=== PATIENT | female | born 1990 | race Caucasian/White ===

== ENCOUNTER 2016-05-14 09:01 | Outpatient (CLI) | payer MEDICAID ==
[~2016-05-14] VITALS: Ht 160 cm; Wt 62.1 kg
[2016-05-14 09:45] VITALS: BP 117/59
[2016-05-14] MEDS ORDERED: D5 LR IV SOLUTION 1,000 ML IV ONE ×2 (10:30→18:45)
[2016-05-14] MEDS ORDERED: ONDANSETRON 4 MG/2 ML (SDV) Z0FRAN IVP ONE (11:45)
[2016-05-14 12:21] LABS: BASOPHILS % (AUTO) 0 % (0-10); EOSINOPHILS % (AUTO) 0 % (0-10); LYMPHOCYTES # (AUTO) 0.7 X 10^3 (1.0-4.0); LYMPHOCYTES % (AUTO) 7 % (12-44); MEAN CORPUSCULAR HEMOGLOBIN 29 PG (25-34); MEAN CORPUSCULAR HGB CONC 34 G/DL (32-36); MEAN CORPUSCULAR VOLUME 87 FL (80-99); MEAN PLATELET VOLUME 11.4 FL (7.4-10.4); MONOCYTES # (AUTO) 0.4 X 10^3 (0.0-1.0); MONOCYTES % (AUTO) 4 % (0-12); NEUTROPHILS # (AUTO) 9.2 X 10^3 (1.8-7.8); NEUTROPHILS % (AUTO) 89 % (42-75); PLATELET COUNT 216 10^3/uL (130-400); RED BLOOD COUNT 3.67 10^6/uL (4.35-5.85); RED CELL DISTRIBUTION WIDTH 12.4 % (10.0-14.5); WHITE BLOOD COUNT 10.3 10^3/uL (4.3-11.0)
[2016-05-14 12:42] LABS: ALANINE AMINOTRANSFERASE 13 U/L (0-55); ALBUMIN 3.1 G/DL (3.2-4.5); ANION GAP 7 MMOL/L (5-14); ASPARTATE AMINO TRANSFERASE 13 U/L (5-34); BILIRUBIN,TOTAL 0.4 MG/DL (0.1-1.0); BLOOD UREA NITROGEN 9 MG/DL (7-18); BUN/CREATININE RATIO 16; CARBON DIOXIDE 23 MMOL/L (21-32); CHLORIDE 106 MMOL/L (98-107); CREATININE SERUM 0.58 MG/DL (0.60-1.30); GFR ESTIMATED > 60; GLUCOSE 157 MG/DL (70-105); POTASSIUM 3.3 MMOL/L (3.6-5.0); SODIUM 136 MMOL/L (135-145); TOTAL PROTEIN 5.9 G/DL (6.4-8.2)
[2016-05-14 12:51] LABS: BAND NEUTROPHILS 1 %; BASOPHILS % (MANUAL) 0 %; EOSINOPHILS % (MANUAL) 0 %; LYMPHOCYTES % (MANUAL) 7 %; NEUTROPHILS % (MANUAL) 88 %
[2016-05-14 13:14] LABS: BILIRUBIN,URINE NEGATIVE (NEGATIVE); KETONES,URINE 1+ (NEGATIVE); LEUKOCYTE ESTERASE ,URINE NEGATIVE (NEGATIVE); NITRITE,URINE NEGATIVE (NEGATIVE); PH,URINE 6 (5-9); PROTEIN,URINE 1+ (NEGATIVE); UROBILINOGEN,URINE NORMAL (NORMAL)
[2016-05-14] MEDS ORDERED: PNV91TAB3 PO (15:00)
[2016-05-14 15:15] VITALS: BP 107/68
[2016-05-14] MEDS ORDERED: D5 LR IV SOLUTION 1,000 ML IV SCH (18:30)
--- NOTE | 2016-05-17 14:16 | Physician Query-Final Dx ---
YFN DANIEL 05/17/16 1416: Clinic Account Progress/Dx Physician Query: Please give diagnosis Date of Service May 14, 2016 at 09:01 HARRISON MESA MD 05/18/16 0735: Clinic Account Progress/Dx DIAGNOSIS: Diagnosis hyperemesis gravidarum YFN DANIEL May 17, 2016 14:16 HARRISON MESA MD May 18, 2016 07:35
== END 2016-05-14 15:15 | disposition home or self-care (01) ==
LOC: WSo 09:01 → LDRP 09:01 → WSo 15:15
PROVIDERS: ATTEND Obstetrics & Gynecology
DX: O21.9 Vomiting of pregnancy, unspecified (principal); Z3A.23 23 weeks gestation of pregnancy
CPT/HCPCS: 36415; 80053; 81000; 85007; 85027; 87088; 96361; 96374; 99213

== ENCOUNTER 2016-08-26 15:20 | Inpatient (IN) | payer MEDICAID ==
[~2016-08-26] VITALS: Ht 160 cm; Wt 67.2 kg
[2016-08-26] VITALS (31 sets, daily range): BP systolic 98–148; BP diastolic 55–88
[~2016-08-26 15:20] MED LIST: PNV91TAB3 PO
[2016-08-26] MEDS ORDERED: D5 LR IV SOLUTION 1,000 ML IV SCH (15:32)
[2016-08-26] MEDS ORDERED: AMPICILLIN INJECTION 2,000 MG in NS (IVPB) 50 ML IV SCH (15:32)
[2016-08-26] MEDS ORDERED: LIDOCAINE/EPI 1%-1:200,000 (XYLOCAINE) 30 ML VIAL INJ PRN (15:45)
[2016-08-26] MEDS ORDERED: AMPICILLIN 2000 MG INJECTION (IM/IV) ONE (16:03)
[2016-08-26] MEDS ORDERED: NS (IVPB) 50 ML ONE ×2 (16:04→20:24)
[2016-08-26 17:08] LABS: BASOPHILS % (AUTO) 0 % (0-10); EOSINOPHILS # (AUTO) 0.3 10^3/uL (0.0-0.3); EOSINOPHILS % (AUTO) 2 % (0-10); LYMPHOCYTES # (AUTO) 2.8 X 10^3 (1.0-4.0); LYMPHOCYTES % (AUTO) 22 % (12-44); MEAN CORPUSCULAR HEMOGLOBIN 28 PG (25-34); MEAN CORPUSCULAR HGB CONC 33 G/DL (32-36); MEAN CORPUSCULAR VOLUME 84 FL (80-99); MEAN PLATELET VOLUME 13.4 FL (7.4-10.4); MONOCYTES # (AUTO) 0.8 X 10^3 (0.0-1.0); MONOCYTES % (AUTO) 7 % (0-12); NEUTROPHILS # (AUTO) 8.7 X 10^3 (1.8-7.8); NEUTROPHILS % (AUTO) 69 % (42-75); PLATELET COUNT 203 10^3/uL (130-400); RED BLOOD COUNT 4.09 10^6/uL (4.35-5.85); RED CELL DISTRIBUTION WIDTH 12.2 % (10.0-14.5); WHITE BLOOD COUNT 12.6 10^3/uL (4.3-11.0)
[2016-08-26] MEDS ORDERED: OXYTOCIN/NORMAL SALINE 500 ML IV SCH (18:10)
--- NOTE | 2016-08-26 18:10 | History & Physical ---
History and Physical Date Seen by Provider: Aug 26, 2016 Time Seen by Provider: 18:06 this patient is a 26-year-old G1 white female with an EDC of 6 2170 38-1/7 weeks ' gestation. She was seen in my office today with contractions pain and pressure. The baby 3 cm dilated left 2 to +3 station and 90 percent with intact membranes. Her history is significant for having a GBS culture at 35 weeks gestation. She was sent to labor and delivery for management. She denies rupture membranes or bleeding. She's had no other problems with this . Allergies are to penicillin and Ceclor both of which caused her to be somewhat hyperactive when she was a toddler , have discussed this with the patient and plan to use ampicillin for GBS prophylaxis as the drug of choice and her allergy does not sound as if it would be a specific concern Medications are vitamins Past medical history, surgical history, obstetric history, family history, social history is operative antepartum record HEENT exam is normal Neck supple with no thyromegaly and no lymphadenopathy Abdomen is gravid soft nontender nondistended Extremities show no clubbing or cyanosis. There is no Homans sign. Pelvic exam now shows cervix almost 5 cm dilated 90 percent effaced +2 to +3 station and intact membranes and vertex presentation. monitor shows contractions every 2-3 minutes heart rate pattern is normal and reassuring Laboratory Tests 08/26/16 16:20 White blood cell count is slightly elevated hemoglobin is normal Assessment and plan term at 38-1/7 weeks' gestation in active labor now dilated 5 cm. Patient's history is concerning for GBS positive culture and the presenting part at a very low station. We have started ampicillin for GBS prophylaxis and her managing expectantly. I suspect that she will deliver vaginally sometime this evening term at 30 8/7 weeks' gestation in active labor with GBS positive culture Allergies and Home Medications Allergies Coded Allergies: Penicillins (Verified Allergy, Severe, 05/14/16) amoxicillin (Verified Allergy, Severe, 05/14/16) cefaclor (Verified Allergy, Severe, 05/14/16) Home Medications Pnv95/Ferrous Fumarate/FA 1 Each Tablet, 1 EACH PO DAILY, (Reported) Clinical Quality Measures DVT/VTE Risk/Contraindication: Risk Factor Score Per Nursin RFS Level Per Nursing on Admit: 1=Low/No VTE PPX HARRISON MESA MD Aug 26, 2016 6:10 pm
[2016-08-26] MEDS ORDERED: BENZOCAINE/MENTHOL (DERMOPLAST) 56 ML CAN TP PRN (18:15)
[2016-08-26] MEDS ORDERED: TETANUS,DIPTH,PERTUSS P/F (BOOSTRIX) 0.5 ML VIAL IM ONE (18:15)
[2016-08-26] MEDS ORDERED: oxyCODONE/APAP 10/325MG (PERCOCET 10) TABLET PO PRN (18:15)
[2016-08-26] MEDS ORDERED: MEASLES,MUMPS,RUBELLA 1 EA INJ SC ONE (18:15)
[2016-08-26] MEDS ORDERED: LACTATED RINGERS 1,000 ML IV ONE ×2 (19:22→20:34)
[2016-08-26] MEDS ORDERED: SUFENTA 0.6MCG/ML BUPIVA 0.125 100 ML ONE (19:44)
[2016-08-26] MEDS ORDERED: AMPICILLIN INJECTION 1,000 MG in NS (IVPB) 50 ML IV SCH (19:45)
[2016-08-26] MEDS ORDERED: fentaNYL INJECTION 100 MCG/2 ML AMP ONE (19:55)
[2016-08-26] MEDS ORDERED: AMPICILLIN 1000 MG INJECTION (IV/IM) ONE (20:24)
[2016-08-26] MEDS ORDERED: LIDOCAINE/EPI 1%-1:200,000 (XYLOCAINE) 30 ML VIAL ONE (20:41)
[2016-08-26] MEDS ORDERED: METOCLOPRAMIDE INJ 10 MG/2 ML (REGLAN) IV PRN (20:45)
[2016-08-26] MEDS ORDERED: diphenhydrAMINE 50 MG/ML INJ (BENADRYL) IV PRN (20:45)
[2016-08-26] MEDS ORDERED: NALOXONE 0.4 MG/ML 1 ML (NARCAN) VIAL IV PRN ×2 (20:45)
[2016-08-26] MEDS ORDERED: ONDANSETRON 4 MG/2 ML (SDV) Z0FRAN IV PRN (20:45)
[2016-08-26] MEDS ORDERED: EPIDURAL (SUFENTA 0.6MCG/ML BUPIVA 0.125%) 100 ML BAG EPI PRN (20:45)
--- NOTE | 2016-08-26 21:19 | Progress Note-Post Operative ---
Post-Operative Progess Note Surgeon (s)/Manager Home (s) Surgeon HARRISON MESA MD Manager Home: none Pre-Operative Diagnosis term in labor Post-Operative Diagnosis spontaneous vaginal delivery Procedure & Operative Findings Date of Procedure 08/26/16 Procedure Performed/Findings term spontaneous vaginal delivery Anesthesia Type epidural/spinal/local Estimated Blood Loss Estimated blood loss (mL): 150 cc Specimens/Packing Specimens Removed baby/placenta Packing: none HARRISON MESA MD Aug 26, 2016 9:19 pm
[2016-08-26] MEDS ORDERED: CATHETER FLUSH 10 ML SYR IV SCH (22:00)
[2016-08-26] MEDS ORDERED: WITCH HAZEL(TUCKS) 40 EA JAR ONE (23:41)
[2016-08-27] VITALS: BP 99/68
--- NOTE | 2016-08-27 03:24 | OPERATIVE REPORT ---
DATE OF SERVICE: 08/26/2016 DELIVERY NOTE The patient delivered by term spontaneous vaginal delivery a viable male with Apgars of 9 and 9 at 1 and 5 minutes respectively. Weight was 6 lbs. 14 oz. time was 2053. The patient delivered pushing with 3 only contractions over a somewhat lacerated hymenal ring augmented with a midline episiotomy. The was bulb-suctioned on delivery of the head and again on completion of delivery. The infant was quickly pink, was vigorous, moved all extremities, had excellent tone and reflexes, and the heart rate was over 100 after delivery. The umbilical cord was doubly clamped and cut by the father. Then the was passed to baby's mom. Cord blood was obtained including cord blood gas secondary to some decelerations and the fact that this patient had GBS-positive culture. The placenta was delivered spontaneously Shell. It was normal with a three-vessel cord and it was sent to pathology for permanent section as well as secondary to her GBS status. Cervix, vagina, rectum and perineum were examined and found intact except for multiple lacerations in the posterior fourchette of her vaginal opening including the formation of hymenal caruncle due to the lacerations therein. The midline episiotomy had extended up the right posterior lateral vaginal wall several centimeters as well. This was repaired in the usual manner for a midline episiotomy and repaired the entire complex in the usual fashion with a single suture of 3-0 Vicryl repeat with good reapproximation and good hemostasis and good structural anatomic repositioning. Estimated blood loss with the delivery and the repair was less than 150 mL. The patient tolerated the delivery and the repair well and was transferred eventually to room having recovered in the LDR. The baby remained with the mom. Job ID: [id number] DocumentID: [id number] Dictated Date: 08/26/2016 21:37:25 Mines Safety Engineer Date: 08/27/2016 01:02:23 Dictated By: MD KULDEEP LEYVA
[2016-08-27 04:20] VITALS: BP 120/67
--- NOTE | 2016-08-27 07:14 | Progress Note-Standard ---
Standard Progress Note Progress Notes/Assess & Plan Date Seen by Provider: Aug 27, 2016 Time Seen by Provider: 07:13 Progress/Assessment & Plan this patient is without complaint. She is ambulating, voiding, tolerating by mouth well, denies chest pain, denies shortness of breath, denies nausea or vomiting, denies headache, patient has good pain control. Vital Signs Date Time Temp Pulse Resp B/P (MAP) Pulse Ox O2 Delivery O2 Flow Rate FiO2 08/27/16 04:20 98.2 97 16 120/67 98 08/27/16 00:00 98.9 104 17 99/68 98 08/26/16 20:14 77 20 134/88 99 08/26/16 20:10 77 20 132/81 98 08/26/16 20:08 69 20 128/80 98 08/26/16 20:05 73 20 131/81 99 08/26/16 20:02 70 20 136/83 99 08/26/16 19:55 59 20 135/86 08/26/16 19:25 69 20 135/64 08/26/16 18:55 65 20 116/71 08/26/16 18:23 47 20 141/86 08/26/16 17:57 70 20 138/82 08/26/16 17:20 64 20 122/84 08/26/16 16:50 64 20 122/75 08/26/16 16:25 66 20 126/81 08/26/16 15:50 98.9 64 20 133/77 Vital signs are stable. Patient is afebrile. Fundus is firm below the umbilicus and nontender. Extremities show no clubbing or cyanosis. No Homans sign. Assessment and plan post day number 1 status post term spontaneous vaginal delivery doing well. Plan is for routine convalescence care today and consider discharge home tomorrow HARRISON MESA MD Aug 27, 2016 7:14 am
[2016-08-27] MEDS: KETOROLAC 30 MG/ML VIAL IV SCH ×3 (07:25→12:15)
[2016-08-27] MEDS ORDERED: OXYC-465 PO (07:27)
[2016-08-27] MEDS ORDERED: IBUP-1780 PO (07:27)
[2016-08-27] MEDS ORDERED: DOCU100C37 PO (07:27)
--- NOTE | 2016-08-27 07:28 | Discharge Instructions ---
Discharge Instructions Discharge Medications New, Converted or Re-Newed RX: RX on Chart Patient Instructions Patient Instructions: as instructed Return to The Hospital For: as instructed Activity & Diet Discharge Diet: No Restrictions Activity as Tolerated: No Orders-Post D/C & Referrals Follow Up Appt: Call to make follow up appt. for patient in 4 weeks. Activity Per routine post vaginal delivery instructions. Diet as tolerated Patient may shower or tub bathe as desired. HARRISON MESA MD Aug 27, 2016 7:28 am
[2016-08-27 07:30] VITALS: BP 102/64
--- NOTE | 2016-08-27 14:24 | Anesthesia-Regional Post-Op ---
Regional Patient Condition Mental Status: Alert, Oriented x3 Circulation: Same as Pre-Op Headache: Absent Sensation: Full Recovery Motor Block: Absent Post Op Complications Complications None Follow Up Care/Instructions Patient Instructions None needed. Anesthesia/Patient Condition Patient is doing well, no complaints, stable vital signs, no apparent adverse anesthesia problems. THADDEUS FOSTER DO Aug 27, 2016 14:24
[2016-08-27 15:00] VITALS: BP 108/63
[2016-08-27] MEDS: IBUPROFEN 800 MG (MOTRIN) TAB PO SCH (18:15)
[2016-08-27 20:00] VITALS: BP 110/64
[2016-08-27] MEDS: DOCUSATE SODIUM 100 MG (COLACE) CAP PO SCH (21:05)
[2016-08-28 02:29] VITALS: BP 108/65
[2016-08-28 07:40] VITALS: BP 120/71
--- NOTE | 2016-08-28 08:03 | Progress Note-Standard ---
Standard Progress Note Progress Notes/Assess & Plan Date Seen by Provider: Aug 28, 2016 Time Seen by Provider: 08:02 Progress/Assessment & Plan this patient is without complaint. She is ambulating, voiding, tolerating by mouth well, denies chest pain, denies shortness of breath, denies nausea or vomiting, denies headache, patient has good pain control. Vital Signs Date Time Temp Pulse Resp B/P (MAP) Pulse Ox O2 Delivery O2 Flow Rate FiO2 08/27/16 04:20 98.2 97 16 120/67 98 08/27/16 00:00 98.9 104 17 99/68 98 08/26/16 20:14 77 20 134/88 99 08/26/16 20:10 77 20 132/81 98 08/26/16 20:08 69 20 128/80 98 08/26/16 20:05 73 20 131/81 99 08/26/16 20:02 70 20 136/83 99 08/26/16 19:55 59 20 135/86 08/26/16 19:25 69 20 135/64 08/26/16 18:55 65 20 116/71 08/26/16 18:23 47 20 141/86 08/26/16 17:57 70 20 138/82 08/26/16 17:20 64 20 122/84 08/26/16 16:50 64 20 122/75 08/26/16 16:25 66 20 126/81 08/26/16 15:50 98.9 64 20 133/77 Vital signs are stable. Patient is afebrile. Fundus is firm below the umbilicus and nontender. Extremities show no clubbing or cyanosis. No Homans sign. Assessment and plan post day number 1 status post term spontaneous vaginal delivery doing well. Plan is for routine convalescence care today and consider discharge home tomorrow August 28, 2016. Patient is without complaint. She is ablating, voiding, tolerating by mouth well, has good pain control and is requesting discharge home. Vital Signs Date Time Temp Pulse Resp B/P (MAP) Pulse Ox O2 Delivery O2 Flow Rate FiO2 08/28/16 02:29 96.2 77 17 108/65 97 Room Air 08/27/16 20:00 97.1 64 18 110/64 99 Room Air 08/27/16 15:00 97.6 73 18 108/63 Room Air vital signs are stable. Patient is afebrile. Abdomen is benign. The fundus is firm below the umbilicus and nontender. Extremities show clubbing cyanosis. There is no Homans sign. Assessment and plan day number 2 status post term spontaneous vaginal delivery doing well. Plan is for discharge home with follow-up in clinic. Final Diagnosis term spontaneous vaginal delivery HARRISON MESA MD Aug 28, 2016 8:03 am
[2016-08-28] MEDS: IBUPROFEN 800 MG (MOTRIN) TAB PO SCH (09:11)
[2016-08-28] MEDS: DOCUSATE SODIUM 100 MG (COLACE) CAP PO SCH (09:12)
[2016-08-28 13:13] VITALS: BP 111/64
== END 2016-08-28 14:00 | disposition home or self-care (01) | DRG 775 ==
LOC: LDRP 15:20
PROVIDERS: ADMIT Obstetrics & Gynecology; ATTEND Obstetrics & Gynecology
PROC: 0W8NXZZ Division of Female Perineum, External Approach (ICD-10-PCS; principal; 2016-08-26)
DX: O99.824 Streptococcus B carrier state complicating childbirth (principal); Z3A.38 38 weeks gestation of pregnancy; Z37.0 Single live birth; Z23 Encounter for immunization
CPT/HCPCS: 36415; 85025; 86850; 86900; 86901; 90715

== ENCOUNTER 2018-10-29 19:52 | Emergency (ER) | payer MEDICAID, OTHER ==
[~2018-10-29] VITALS: Ht 160 cm; Wt 53.1 kg
[~2018-10-29 19:52] MED LIST changes: +DOCU100C37 PO; +IBUP-1780 PO; +OXYC-465 PO
[2018-10-29] MEDS ORDERED: NS IV 1000 ML 1,000 ML IV ONE ×2 (20:42→21:34)
--- NOTE | 2018-10-29 20:48 | ED Abdominal Pain ---
General Chief Complaint: Abdominal/GI Problems Stated Complaint: LOWER BACK PAIN,ABD CRAMPING,VOMITING Nursing Triage Note: PT STATES SHE HAS HAD LLQ ABDOMINAL PAIN FOR THE LAST FOUR DAYS THAT RADIATES TO HER BACK. PT STATES SHE HAS BEEN INTERMITTENTLY NAUSEAOUS, STATES SHE HAS VOMITED 2-3 TIMES TODAY, DENIES LOOSE STOOLS OR FEELING FEVERISH. PT STATES HER BACK PAIN IS MORE SEVERE THAN THE ABDOMEN PAIN Sepsis Screen: No Definite Risk Source of Information: Patient Exam Limitations: No Limitations History of Present Illness Date Seen by Provider: Oct 29, 2018 Time Seen by Provider: 20:28 Initial Comments Here with report of left lower quadrant abdominal pain intermittently for the last 4 days. Had episode tonight of more significant and persistent pain that was associated with nausea and vomiting. Did have normal bowel movement this morning. Denies dysuria or vaginal discharge. Last normal menstrual period was October 19. Never had pain like this before. Timing/Duration: 3-4 Days, Getting Worse, Intermittent Severity/Quality: Moderate, Aching, Cramping Location: LLQ Radiation: No Radiation Activities at Onset: None Modifying Factors: Worsens With Movement; Improves With Resting Associated Symptoms: No Back Pain, No Chest Pain, No Fever/Chills; Nausea/Vomiting; No Shortness of Air, No Swelling/Mass in Abdomen, No Weakness Allergies and Home Medications Allergies Coded Allergies: Penicillins (Verified Allergy, Severe, 05/14/16) amoxicillin (Verified Allergy, Severe, 05/14/16) cefaclor (Verified Allergy, Severe, 05/14/16) Home Medications Docusate Sodium 100 Mg Capsule, 100 MG PO BID Prescribed by: HARRISON PRATHER on 08/27/16726 Ibuprofen 800 Mg Tablet, 800 MG PO Q6H Prescribed by: HARRISON PRATHER on 08/27/16726 Oxycodone HCl/Acetaminophen 1 Each Tablet, 1-2 TAB PO Q6H PRN for PAIN-MILD TO MODERATE Prescribed by: HARRISON PRATHER on 08/27/16726 Pnv95/Ferrous Fumarate/FA 1 Each Tablet, 1 EACH PO DAILY, (Reported) Patient Home Medication List Home Medication List Reviewed: Yes Review of Systems Review of Systems Constitutional: see HPI; No chills, No fever EENTM: No Symptoms Reported Respiratory: No Symptoms Reported Cardiovascular: No Symptoms Reported Gastrointestinal: Denies Abdominal Pain, Denies Nausea Genitourinary: No Symptoms Reported Musculoskeletal: no symptoms reported Skin: no symptoms reported Psychiatric/Neurological: No Symptoms Reported All Other Systems Reviewed Negative Unless Noted: Yes Past Qgeqcss-Rrqvxz-Puvtrl Hx Past Med/Social Hx: Reviewed Nursing Past Med/Soc Hx Patient Social History Alcohol Use: Denies Use Recreational Drug Use: No Smoking Status: Never a Smoker Recent Foreign Travel: No Contact w/Someone Who Travel: No Recent Infectious Disease Expo: No Recent Hopitalizations: No Immunizations Up To Date PED Vaccines UTD: Yes Seasonal Allergies Seasonal Allergies: Yes (grass) Past Medical History Surgeries: No Respiratory: Yes Asthma Cardiac: No Neurological: No : No Last Menstrual Period: Oct 23, 2018 Hx : 1 Hx Para: 1 Female Reproductive Disorders: Denies Sexually Transmitted Disease: No HIV/AIDS: No Genitourinary: No Gastrointestinal: Yes Gastroesophageal Reflux Musculoskeletal: No Endocrine: No HEENT: No Cancer: No Psychosocial: No Integumentary: Yes Eczema Blood Disorders: No Adverse Reaction/Blood Tranf: No Family Medical History Reviewed Nursing Family Hx Cardiovascular disease 19 FATHER (FATHER) 19 MOTHER (MOTHER, MATERNAL GRANDMOTHER) Diabetes mellitus 19 FATHER (FATHER) No Pertinent Family Hx Physical Exam Vital Signs Vital Signs - First Documented 10/29/18 19:55 Temp 99.3 Pulse 85 Resp 18 B/P (MAP) 119/69 (86) Pulse Ox 97 O2 Delivery Room Air Capillary Refill : Less Than 3 Seconds Height/Weight/BMI Height: 5'3.00" Weight: 117lbs. 2.0oz. 53.046251oz; 26.2 BMI Method:Stated General Appearance: WD/WN, no apparent distress HEENT: PERRL/EOMI, pharynx normal Neck: full range of motion, supple Respiratory: lungs clear, normal breath sounds Cardiovascular: regular rate, rhythm, no murmur Gastrointestinal: non tender, soft, no organomegaly, no pulsatile mass Extremities: non-tender, normal inspection Back: normal inspection, no CVA tenderness, no vertebral tenderness Neurologic/Psychiatric: alert, oriented x 3 Skin: normal color, warm/dry Progress/Results/Core Measures Results/Orders Lab Results Laboratory Tests Test 10/29/18 20:07 Range/Units White Blood Count 14.2 H 4.3-11.0 10^3/uL Red Blood Count 4.61 4.35-5.85 10^6/uL Hemoglobin 12.8 11.5-16.0 G/DL Hematocrit 38 35-52 % Mean Corpuscular Volume 83 80-99 FL Mean Corpuscular Hemoglobin 28 25-34 PG Mean Corpuscular Hemoglobin Concent 33 32-36 G/DL Red Cell Distribution Width 12.2 10.0-14.5 % Platelet Count 251 130-400 10^3/uL Mean Platelet Volume 12.4 H 7.4-10.4 FL Neutrophils (%) (Auto) 75 42-75 % Lymphocytes (%) (Auto) 19 12-44 % Monocytes (%) (Auto) 4 0-12 % Eosinophils (%) (Auto) 1 0-10 % Basophils (%) (Auto) 0 0-10 % Neutrophils # (Auto) 10.6 H 1.8-7.8 X 10^3 Lymphocytes # (Auto) 2.7 1.0-4.0 X 10^3 Monocytes # (Auto) 0.6 0.0-1.0 X 10^3 Eosinophils # (Auto) 0.2 0.0-0.3 10^3/uL Basophils # (Auto) 0.1 0.0-0.1 10^3/uL Urine Color YELLOW Urine Clarity SL CLOUDY Urine pH 5 5-9 Urine Specific Norris 1.025 H 1.016-1.022 Urine Protein 2+ H NEGATIVE Urine Glucose (UA) NEGATIVE NEGATIVE Urine Ketones NEGATIVE NEGATIVE Urine Nitrite NEGATIVE NEGATIVE Urine Bilirubin NEGATIVE NEGATIVE Urine Urobilinogen NORMAL NORMAL MG/DL Urine Leukocyte Esterase NEGATIVE NEGATIVE Urine RBC (Auto) 5+ H NEGATIVE Urine RBC 50-100 H /HPF Urine WBC 0-2 /HPF Urine Squamous Epithelial Cells 5-10 /HPF Urine Crystals NONE /LPF Urine Bacteria TRACE /HPF Urine Casts NONE /LPF Urine Mucus MODERATE H /LPF Urine Culture Indicated NO Sodium Level 140 135-145 MMOL/L Potassium Level 4.0 3.6-5.0 MMOL/L Chloride Level 105 98-107 MMOL/L Carbon Dioxide Level 23 21-32 MMOL/L Anion Gap 12 5-14 MMOL/L Blood Urea Nitrogen 14 7-18 MG/DL Creatinine 0.80 0.60-1.30 MG/DL Estimat Glomerular Filtration Rate > 60 BUN/Creatinine Ratio 18 Glucose Level 100 70-105 MG/DL Calcium Level 9.5 8.5-10.1 MG/DL Corrected Calcium 9.1 8.5-10.1 MG/DL Total Bilirubin 0.5 0.1-1.0 MG/DL Aspartate Amino Transf (AST/SGOT) 18 5-34 U/L Alanine Aminotransferase (ALT/SGPT) 11 0-55 U/L Alkaline Phosphatase 65 40-136 U/L C-Reactive Protein High Sensitivity 0.06 0.00-0.50 MG/DL Total Protein 8.1 6.4-8.2 GM/DL Albumin 4.5 3.2-4.5 GM/DL My Orders Orders - YASMEEN CRESPO MD Cbc With Automated Diff (10/29/18 20:42) Comprehensive Metabolic Panel (10/29/18 20:42) Hs C Reactive Protein (10/29/18 20:42) Ua Culture If Indicated (10/29/18 20:42) Ed Iv/Invasive Line Start (10/29/18 20:42) Ns Iv 1000 Ml (Sodium Chloride 0.9%) (10/29/18 20:42) Urine Bedside (10/29/18 20:42) Ct Abd/Pelvis Wo(Kidney Stone) (10/29/18 21:09) Abdomen/Kub 1view (10/29/18 21:29) Ed Iv/Invasive Line Start (10/29/18 21:34) Ns Iv 1000 Ml (Sodium Chloride 0.9%) (10/29/18 21:34) Medications Given in ED Current Medications Medications Dose Ordered Sig/Nathan Route Start Time Stop Time Status Last Admin Dose Admin Sodium Chloride 1,000 ml @ 0 mls/hr Q0M ONCE IV 10/29/18 20:42 10/29/18 20:43 DC 10/29/18 20:55 1,000 MLS/HR Sodium Chloride 1,000 ml @ 0 mls/hr Q0M ONCE IV 10/29/18 21:34 10/29/18 21:35 DC 10/29/18 21:38 1,000 MLS/HR Vital Signs/I&O 10/29/18 19:55 Temp 99.3 Pulse 85 Resp 18 B/P (MAP) 119/69 (86) Pulse Ox 97 O2 Delivery Room Air Blood Pressure Mean: 86 Progress Progress Note : Progress Note Seen and evaluated. IV, labs, UA and UCG ordered. Normal saline 1 L bolus ordered. Monitor patient. CT abdomen and pelvis ordered due to blood in the urine or concerns for kidney stone. 2134: CT does show 3-4 mm stone distal ureter. KUB ordered. Patient still has not had much urge to urinate and admits to dehydration. We will repeat normal saline 1 L bolus. Currently without pain or nausea. Diagnostic Imaging Diagonstic Imaging: CT Plain Films/CT/US/NM/MRI: abdomen, pelvis Comments [facility] CENTERDealerSocket [facility] [place], [place] NAME: [facility] REC#: [id number] PT STATUS: REG ER : 1990 PHYSICIAN: YASMEEN CRESPO MD ADMIT DATE: 10/29/18/ER Draft Date of Exam:10/29/18 CT ABD/PELVIS WO(KIDNEY STONE) PROCEDURE: CT urinary tract, rule out kidney stone. TECHNIQUE: Multiple contiguous axial images were obtained through the abdomen and pelvis without the use of intravenous contrast. Auto Exposure Controls were utilized during the CT exam to meet ALARA standards for radiation dose reduction. INDICATION: Abdominal pain. COMPARISON: None FINDINGS: Included portions of the lung bases are clear. CT abdomen: There is moderate asymmetric left-sided hydroureteronephrosis. Distal ureter, however, is difficult to visualize contiguously. There is, however, 3-4 mm extraosseous calcification within the expected location of the distal left ureter concerning for ureteral calculus (image 81, series 2). No other renal or ureteral calculi are seen on either side. There is no hydroureteronephrosis or other evidence of obstruction on the right. No focal renal lesions are seen on this noncontrast exam. The adrenal glands, spleen, pancreas, and liver have an unremarkable noncontrast CT appearance. There is no loculated fluid collection, free fluid, nor free air within the abdomen. No abnormal mesenteric or retroperitoneal adenopathy is seen. Small bowel loops are nondistended. Normal appendix cannot be adequately identified, but there is no pericecal inflammation. Osseous structures show no acute abnormalities. CT pelvis: Urinary bladder is unopacified. No calculi are seen within the urinary bladder. There is no loculated fluid collection, free fluid or free air within the pelvis. No abnormal adenopathy is seen. Again, there is suggestion of 3-4 mm calculus within the distal left ureter as described above. IMPRESSION: 1. Moderate asymmetric left-sided hydroureteronephrosis, which is felt to be related to 3-4 mm calculus within the distal left ureter as described above. Dictated on workstation # [id number] Dict: 10/29/186 Trans: 10/29/18 2144 [facility] [id number] Interpreted by: BRENDA TANG MD Electronically signed by: Departure Impression Primary Impression: Left ureteral stone Disposition: HOME, SELF-CARE Condition: Improved Departure-Patient Inst. Decision time for Depature: 21:57 Referrals: NO,LOCAL PHYSICIAN (PCP) Primary Care Physician LÓPEZ RUVALCABA APRN (Family) Primary Care Physician Patient Instructions: Kidney Stones (DC) Add. Discharge Instructions: All discharge instructions reviewed with patient and/or family. Voiced understanding. You may take ibuprofen 400-600 mg every 8 hours as needed for pain and you should do this every 8 hours over the next 3 days to help with stone passage. Take medications as directed. You may also take Tylenol/acetaminophen 1000 mg ev jinny 8 hours as needed for pain. Follow-up with Dr. Teixeira in a few days for recheck if not improving. You may call his office for appointment. Strain your urine to monitor for stone passage. Return for worse pain, fever, vomiting, weakness, breathing problems or other concerns as needed. It is important that you drink plenty of fluids. Scripts Sulfamethoxazole/Trimethoprim (Sulfamethoxazole-Tmp Ds Tablet) 1 Each Tablet 1 EACH PO BID, #14 TAB 0 Refills Prov: YASMEEN CRESPO MD 10/29/18 Tamsulosin HCl (Flomax) 0.4 Mg Cap 0.4 MG PO DAILY, #14 CAP 0 Refills Prov: YASMEEN CRESPO MD 10/29/18 Copy Copies To 1: TISH TEIXEIRA MD, TIMOTHY D MD Oct 29, 2018 20:48
[2018-10-29 20:49] LABS: BASOPHILS # (AUTO) 0.1 10^3/uL (0.0-0.1); BASOPHILS % (AUTO) 0 % (0-10); BILIRUBIN,URINE NEGATIVE (NEGATIVE); COLOR,URINE YELLOW; EOSINOPHILS # (AUTO) 0.2 10^3/uL (0.0-0.3); EOSINOPHILS % (AUTO) 1 % (0-10); GLUCOSE, URINE (UA) NEGATIVE (NEGATIVE); HEMATOCRIT 38 % (35-52); HEMOGLOBIN 12.8 G/DL (11.5-16.0); KETONES,URINE NEGATIVE (NEGATIVE); LEUKOCYTE ESTERASE ,URINE NEGATIVE (NEGATIVE); LYMPHOCYTES # (AUTO) 2.7 X 10^3 (1.0-4.0); LYMPHOCYTES % (AUTO) 19 % (12-44); MEAN CORPUSCULAR HEMOGLOBIN 28 PG (25-34); MEAN CORPUSCULAR HGB CONC 33 G/DL (32-36); MEAN CORPUSCULAR VOLUME 83 FL (80-99); MEAN PLATELET VOLUME 12.4 FL (7.4-10.4); MONOCYTES # (AUTO) 0.6 X 10^3 (0.0-1.0); MONOCYTES % (AUTO) 4 % (0-12); NEUTROPHILS # (AUTO) 10.6 X 10^3 (1.8-7.8); NEUTROPHILS % (AUTO) 75 % (42-75); NITRITE,URINE NEGATIVE (NEGATIVE); PH,URINE 5 (5-9); PLATELET COUNT 251 10^3/uL (130-400); PROTEIN,URINE 2+ (NEGATIVE); RED CELL DISTRIBUTION WIDTH 12.2 % (10.0-14.5); UROBILINOGEN,URINE NORMAL (NORMAL); WHITE BLOOD COUNT 14.2 10^3/uL (4.3-11.0)
[2018-10-29 20:52] LABS: CLARITY,URINE SL CLOUDY
[2018-10-29 20:54] LABS: BACTERIA,URINE TRACE /HPF; RBC,URINE 50-100 /HPF; WBC,URINE 0-2 /HPF
[2018-10-29 21:03] LABS: ALANINE AMINOTRANSFERASE 11 U/L (0-55); ALBUMIN 4.5 GM/DL (3.2-4.5); ALKALINE PHOSPHATASE 65 U/L (40-136); BILIRUBIN,TOTAL 0.5 MG/DL (0.1-1.0); BUN/CREATININE RATIO 18; CALCIUM 9.5 MG/DL (8.5-10.1); CARBON DIOXIDE 23 MMOL/L (21-32); CHLORIDE 105 MMOL/L (98-107); GFR ESTIMATED > 60; GLUCOSE 100 MG/DL (70-105); SODIUM 140 MMOL/L (135-145); TOTAL PROTEIN 8.1 GM/DL (6.4-8.2)
--- NOTE | 2018-10-29 21:45 | Diagnostic Imaging Report ---
PROCEDURE: CT urinary tract, rule out kidney stone. TECHNIQUE: Multiple contiguous axial images were obtained through the abdomen and pelvis without the use of intravenous contrast. Auto Exposure Controls were utilized during the CT exam to meet ALARA standards for radiation dose reduction. INDICATION: Abdominal pain. COMPARISON: None FINDINGS: Included portions of the lung bases are clear. CT abdomen: There is moderate asymmetric left-sided hydroureteronephrosis. Distal ureter, however, is difficult to visualize contiguously. There is, however, 3-4 mm extraosseous calcification within the expected location of the distal left ureter concerning for ureteral calculus (image 81, series 2). No other renal or ureteral calculi are seen on either side. There is no hydroureteronephrosis or other evidence of obstruction on the right. No focal renal lesions are seen on this noncontrast exam. The adrenal glands, spleen, pancreas, and liver have an unremarkable noncontrast CT appearance. There is no loculated fluid collection, free fluid, nor free air within the abdomen. No abnormal mesenteric or retroperitoneal adenopathy is seen. Small bowel loops are nondistended. Normal appendix cannot be adequately identified, but there is no pericecal inflammation. Osseous structures show no acute abnormalities. CT pelvis: Urinary bladder is unopacified. No calculi are seen within the urinary bladder. There is no loculated fluid collection, free fluid or free air within the pelvis. No abnormal adenopathy is seen. Again, there is suggestion of 3-4 mm calculus within the distal left ureter as described above. IMPRESSION: 1. Moderate asymmetric left-sided hydroureteronephrosis, which is felt to be related to 3-4 mm calculus within the distal left ureter as described above. Dictated by: Dictated on workstation # [id number]
--- NOTE | 2018-10-29 21:58 | Diagnostic Imaging Report ---
INDICATION: Abdominal pain. Kidney stone. COMPARISON: None. EXAMINATION: Single frontal radiographic view of the abdomen was obtained. FINDINGS: No unexpected extraosseous calcifications or radiopaque foreign bodies are seen. Specifically, definite calcification cannot be adequately identified o correspond with patient's left ureteral calculus. Small bowel loops are nondistended. There is no large collection of free intraperitoneal air. Bony structures show no acute abnormality. IMPRESSION: 1. Nonobstructive small bowel gas pattern. 2. No conspicuous extraosseous calcifications. Dictated by: Dictated on workstation # [id number]
[2018-10-29] MEDS ORDERED: SULF-222 PO (22:08)
[2018-10-29] MEDS ORDERED: TAMS0.4C98 PO (22:08)
[2018-10-29] MEDS ORDERED: KETOROLAC 30 MG/ML VIAL IVP STA (22:09)
[2018-10-29 22:36] VITALS: BP 103/56
== END 2018-10-29 22:36 | disposition home or self-care (01) ==
LOC: EDUNIT# 19:52 → ER 19:54
DX: N13.2 Hydronephrosis with renal and ureteral calculous obstruction (principal); J45.909 Unspecified asthma, uncomplicated; K21.9 Gastro-esophageal reflux disease without esophagitis; Z88.0 Allergy status to penicillin; Z88.1 Allergy status to other antibiotic agents; Z82.49 Family history of ischemic heart disease and other diseases of the circulatory system
CPT/HCPCS: 36415; 74018; 74176; 80053; 81000; 84703; 85025; 86141

== ENCOUNTER → 2021-05-10 | Outpatient (CLI) | payer OTHER ==
[~2021-05-10] MED LIST changes: -OXYC-465 PO; +OXYC-556 PO; +SULF-222 PO; +TMSL.4C PO
== END ==
LOC: LAB 12:57
PROVIDERS: ATTEND Obstetrics & Gynecology
DX: O20.0 Threatened abortion (principal)
CPT/HCPCS: 36415; 84702

== ENCOUNTER 2022-03-02 09:04 | Outpatient (CLI) | payer OTHER ==
[~2022-03-02] VITALS: Ht 160.3 cm; Wt 58.0 kg
[2022-03-02] MEDS ORDERED: PREN-142 PO (10:06)
== END 2022-03-02 10:21 ==
LOC: PREOP 09:04
PROVIDERS: ATTEND Obstetrics & Gynecology
DX: Z01.818 Encounter for other preprocedural examination (principal)

== ENCOUNTER 2022-03-03 05:49 | Day surgery (SDC) | payer OTHER ==
[2022-03-03] VITALS (9 sets, daily range): BP systolic 99–120; BP diastolic 57–77
[~2022-03-03] VITALS: Ht 160 cm; Wt 58.0 kg
[~2022-03-03 05:49] MED LIST changes: +PREN-142 PO
[2022-03-03] MEDS ORDERED: CLINDAMYCIN 900 MG/50 ML IVPB 50 ML IV ONE (06:30)
[2022-03-03] MEDS ORDERED: MIDAZOLAM 2 MG/2 ML (VERSED) VIAL IV ONE (06:30)
[2022-03-03] MEDS: LACTATED RINGERS 1,000 ML IV PRN ×2 (06:59→07:30)
[2022-03-03 07:07] LABS: BASOPHILS # (AUTO) 0.1 10^3/uL (0.0-0.1); BASOPHILS % (AUTO) 1 % (0-10); EOSINOPHILS # (AUTO) 0.1 10^3/uL (0.0-0.3); EOSINOPHILS % (AUTO) 2 % (0-10); HEMATOCRIT 35 % (35-52); HEMOGLOBIN 11.8 g/dL (11.5-16.0); LYMPHOCYTES # (AUTO) 2.1 10^3/uL (1.0-4.0); LYMPHOCYTES % (AUTO) 28 % (12-44); MEAN CORPUSCULAR HEMOGLOBIN 29 pg (25-34); MEAN CORPUSCULAR HGB CONC 33 g/dL (32-36); MEAN CORPUSCULAR VOLUME 86 fL (80-99); MEAN PLATELET VOLUME 12.1 fL (9.0-12.2); MONOCYTES # (AUTO) 0.5 10^3/uL (0.0-1.0); MONOCYTES % (AUTO) 7 % (0-12); NEUTROPHILS # (AUTO) 4.8 10^3/uL (1.8-7.8); NEUTROPHILS % (AUTO) 63 % (42-75); PLATELET COUNT 236 10^3/uL (130-400); WHITE BLOOD COUNT 7.6 10^3/uL (4.3-11.0)
--- NOTE | 2022-03-03 07:07 | Progress Note-Post Operative ---
Post-Operative Progess Note Surgeon (s)/Human Resources Clerk (s) Surgeon HARRISON MESA MD Human Resources Clerk: None Pre-Operative Diagnosis Blighted ovum/missed Post-Operative Diagnosis Same Procedure & Operative Findings Date of Procedure 03/03/22 Procedure Performed/Findings D&C for first trimester missed miscarriage Anesthesia Type General Estimated Blood Loss Estimated blood loss (mL): 150cc Specimens/Packing Specimens Removed Uterine contents/products of conception HARRISON MESA MD Mar 03, 2022 07:07
--- NOTE | 2022-03-03 07:07 | Progress Note-Pre Operative ---
Pre-Operative Progress Note Date of Available H&P: Mar 03, 2022 Date H&P Reviewed: Mar 03, 2022 Time H&P Reviewed: 07:06 History & Physical: H&P Reviewed, No changes noted Pre-Operative Diagnosis: Blighted ovum/missed HARRISON MESA MD Mar 03, 2022 07:07
--- NOTE | 2022-03-03 07:09 | Discharge Inst-Surgical ---
Discharge Inst-Surgical Depart Medication/Instructions New, Converted or Re-Newed RX: Other Consults/Follow Up Orders & Referrals Follow Up Appt: Call to make follow up appt. for patient in 2 weeks. Activity: Rest for 24 hours, than as tolerated. Patient may use on Motrin/ibuprofen Diet: As tolerated- shower or tub bathe as desired. No driving for 24 hours, no alcoholic beverages for 24 hours, and nothing per vagina (no tampons, douching, or intercourse) for 2 weeks. Patient to return to the clinic as soon as possible for: Temperature greater than 101F, Severe Pain, Foul discharge from incision or vagina, Excessive Bleeding (more than a period). Activity Activity as Tolerated: No Diet Discharge Diet: No Restrictions HARRISON MESA MD Mar 03, 2022 07:09
[2022-03-03] MEDS ORDERED: MIDAZOLAM 2 MG/2 ML (VERSED) VIAL ONE (07:19)
[2022-03-03] MEDS ORDERED: fentaNYL INJ 100 MCG/2 ML AMP ONE (07:19)
[2022-03-03] MEDS ORDERED: KETOROLAC 30 MG/ML VIAL ONE (07:39)
[2022-03-03] MEDS ORDERED: proPOfol 200 MG/20 ML (DIPRIVAN) VIAL IV ONE (07:39)
[2022-03-03] MEDS ORDERED: LIDOCAINE PF 2% 5 ML (XYLOCAINE) VIAL ONE (07:39)
[2022-03-03] MEDS ORDERED: ONDANSETRON 4 MG/2 ML (SDV) Z0FRAN ONE (07:40)
--- NOTE | 2022-03-03 07:49 | Anesthesia-General Post-Op ---
General Patient Condition Mental Status/LOC: Same as Preop Cardiovascular: Satisfactory Nausea/Vomiting: Absent Respiratory: Satisfactory Pain: Controlled Complications: Absent Post Op Complications Complications None Follow Up Care/Instructions Patient Instructions None needed. Anesthesia/Patient Condition Patient Condition Patient is doing well, no complaints, stable vital signs, no apparent adverse anesthesia problems. No complications reported per nursing. ALBERT MENDOZA CRNA Mar 03, 2022 07:49
[2022-03-03] MEDS ORDERED: ONDANSETRON 4 MG/2 ML (SDV) Z0FRAN IVP PRN (08:00)
[2022-03-03] MEDS ORDERED: fentaNYL INJ 100 MCG/2 ML AMP IVP ONE (08:00)
[2022-03-03] MEDS ORDERED: ACETAMINOPHEN 325 MG TABLET ONE (09:04)
[2022-03-03] MEDS ORDERED: ACETAMINOPHEN 325 MG TABLET PO ONE (09:15)
[2022-03-03] MEDS ORDERED: PROPOFOL INJECTION 50 ML IV ONE (11:15)
--- NOTE | 2022-03-03 13:10 | OPERATIVE REPORT ---
DATE OF SERVICE: 03/03/2022 PREOPERATIVE DIAGNOSIS: Missed AB/blighted ovum. POSTOPERATIVE DIAGNOSIS: Missed AB/blighted ovum. PROCEDURE: D and C for first trimester missed AB. DESCRIPTION OF PROCEDURE: With the patient in the supine position, under satisfactory general anesthesia, she was repositioned in the dorsal lithotomy position in the Layo stirrups and prepped and draped in the usual fashion for vaginal surgery. Weighted speculum placed in the posterior fornix of vagina, cervix exposed and grasped anteriorly with a single tooth tenaculum. The uterus was sounded to 14 cm with uterine sound. The cervix was then serially dilated with Peter dilators to a #20 Peter and then a #9 #10 Hegar dilator was a final step in dilation. A #9 curved suction curette was introduced and the uterine cavity curettaged with removal of a large amount of trophoblastic and decidual appearing tissue as well as blood clot, amniotic fluid and debris. The endometrial cavity was then sharply curettaged in all four quadrants with a sharp curette. The suction curette was reintroduced and all blood clot and debris evacuated from the uterus. The tenaculum was now removed. There was some bleeding from one of the puncture sites. This was controlled with silver nitrate to effect hemostasis. There was minimal bleeding from the cervical os. The uterus was decreased in size from 10-12 weeks' size prior to the procedure down to about 8-week size and nicely contracted. Sponge and needle counts were correct on completion of the procedure. Blood loss was around 100-150 mL. The patient tolerated the procedure well and was uneventfully awakened from her general anesthesia and transferred to the recovery room in stable condition with plans for discharge home PAR. Job ID: [id number] DocumentID: [id number] Dictated Date: 03/03/2022 08:03:55 Housekeeper Cleaning Cooking Date: 03/03/2022 13:08:00 Dictated By: HARRISON MESA MD [facility]
== END 2022-03-03 09:25 | disposition home or self-care (01) ==
LOC: SDC 05:49
PROVIDERS: ATTEND Obstetrics & Gynecology
DX: O02.1 Missed abortion (principal); Z28.310 Unvaccinated for COVID-19; J45.909 Unspecified asthma, uncomplicated; K21.9 Gastro-esophageal reflux disease without esophagitis
CPT/HCPCS: 36415; 85025; 87081; 88305